=== PATIENT | female | born 1980 | race Caucasian/White ===

== ENCOUNTER 2021-01-14 20:38 | Inpatient (IN) | payer SELFPAY ==
[~2021-01-14] VITALS: Ht 170.2 cm; Wt 87.0 kg
[2021-01-14 23:34] LABS: BASOPHIL 0.3 % (0-2); EOSINOPHIL 12.3 % (0-5); HGB 12.7 g/dl (12.5-16.0); LYMPHOCYTE 27.6 % (15-48); MCH 31.1 pg (25.0-31.0); MCHC 35.3 g/dL (32.0-36.0); MCV 88.2 fL (78.0-100.0); MONOCYTE 6.5 % (0-12); MPV 10.8 fL (6.0-9.5); NRBC 0; PLT 175 K/uL (150-400); RBC 4.08 M/uL (4.20-5.40); WBC 6.5 K/uL (4.0-10.5)
[2021-01-14 23:39] LABS: INR 1.06 (0.9-1.2); PROTHROMBIN TIME 13.2 SECONDS (11.8-13.4); PTT 29.8 SECONDS (24.4-34.7)
[2021-01-14 23:45] LABS: ALBUMIN 3.1 g/dL (3.4-5.0); BILIRUBIN - TOTAL 0.3 mg/dL (0.2-1.0); BUN/CREAT RATIO (CALC) 16.5 RATIO; CREATININE 0.79 mg/dL (0.51-0.95); POTASSIUM 3.8 mmol/L (3.5-5.1); TOTAL PROTEIN 8.1 g/dL (6.4-8.2)
[2021-01-14 23:45] LABS: BILIRUBIN NEGATIVE (NEGATIVE); BLOOD NEGATIVE Ery/uL (NEGATIVE); CLARITY CLEAR (CLEAR); COLOR YELLOW (YELLOW); GLUCOSE (U) NORMAL (NORMAL); LEUKOCYTES NEGATIVE Leu/uL (NEGATIVE); NITRITE NEGATIVE (NEGATIVE); PROTEIN NEGATIVE (NEGATIVE); SPECIFIC GRAVITY 1.025 (1.001-1.030)
[2021-01-14 23:48] LABS: AMPHETAMINES NEGATIVE (NEGATIVE); BARBITURATES POSITIVE (NEGATIVE); ECSTASY (MDMA) NEGATIVE (NEGATIVE); MARIJUANA (THC) NEGATIVE (NEGATIVE); METHADONE NEGATIVE (NEGATIVE); OPIATES NEGATIVE (NEGATIVE); OXYCODONE NEGATIVE (NEGATIVE)
[2021-01-15 07:19] LABS: BUN/CREAT RATIO (CALC) 19.7 RATIO; CREATININE 0.71 mg/dL (0.51-0.95); POTASSIUM 3.8 mmol/L (3.5-5.1)
[2021-01-15] MEDS ORDERED: NEURONTIN300 MG PO (15:13)
[2021-01-15] MEDS ORDERED: WELLBUTRIN SR150 MG PO (15:13)
[2021-01-15] MEDS ORDERED: SEROQUEL 25MG T25 MG PO (15:14)
[2021-01-15] MEDS ORDERED: ROBAXIN750 MG PO (15:14)
[2021-01-15] MEDS ORDERED: ALDACTONE25 MG PO (15:15)
[2021-01-15] MEDS ORDERED: METFORMIN HCL500 MG PO (15:15)
[2021-01-15] MEDS ORDERED: LASIX40 MG PO (15:16)
[2021-01-15] MEDS ORDERED: VOLTAREN **OUT50 MG PO (15:16)
[2021-01-15] MEDS ORDERED: LACTULOSE10 G/15 ML PO (15:16)
[2021-01-15] MEDS ORDERED: CLONAZEPAM 1MG T1 MG PO (15:17)
[2021-01-15] MEDS ORDERED: HARVONI 90-4001 EACH PO (15:18)
[2021-01-16 05:39] LABS: BASOPHIL 0.4 % (0-2); EOSINOPHIL 10.5 % (0-5); HCT 32.9 % (37.0-47.0); LYMPHOCYTE 19.5 % (15-48); MCH 30.7 pg (25.0-31.0); MCHC 33.4 g/dL (32.0-36.0); MCV 91.9 fL (78.0-100.0); MONOCYTE 6.4 % (0-12); MPV 10.8 fL (6.0-9.5); NEUTROPHIL 62.8 % (41-80); NRBC 0; PLT 135 K/uL (150-400); RBC 3.58 M/uL (4.20-5.40); RDW 13.9 % (11.5-14.0); WBC 5.1 K/uL (4.0-10.5)
[2021-01-16 05:42] LABS: ALBUMIN 2.6 g/dL (3.4-5.0); BILIRUBIN - TOTAL 0.5 mg/dL (0.2-1.0); BUN/CREAT RATIO (CALC) 21.7 RATIO; CREATININE 0.46 mg/dL (0.51-0.95); GLOBULIN (CALCULATION) 4.2 g/dL; MAGNESIUM 1.2 mg/dL (1.8-2.4); PHOSPHORUS 2.3 mg/dL (2.6-4.7); POTASSIUM 3.6 mmol/L (3.5-5.1); TOTAL PROTEIN 6.8 g/dL (6.4-8.2)
--- NOTE | 2021-01-16 15:52 | NUR ---
01/16/21 Ms. Benson requested to see this socially responsible investment adviser. The assessment was limited due to patient's slurred speech. Ms. Benson reports plans to continue staying with her friend in [place]. She is interested is being set up with a PCP. A referral was made to the Patient Resource Fleet Operations Manager.
[2021-01-17 05:21] LABS: BASOPHIL 0.2 % (0-2); EOSINOPHIL 9.3 % (0-5); HCT 34.3 % (37.0-47.0); HGB 11.4 g/dl (12.5-16.0); LYMPHOCYTE 22.6 % (15-48); MCHC 33.2 g/dL (32.0-36.0); MCV 93.2 fL (78.0-100.0); MONOCYTE 8.6 % (0-12); NEUTROPHIL 59.3 % (41-80); NRBC 0; PLT 136 K/uL (150-400); RBC 3.68 M/uL (4.20-5.40); RDW 13.9 % (11.5-14.0); WBC 4.2 K/uL (4.0-10.5)
[2021-01-17 05:37] LABS: ALBUMIN 2.8 g/dL (3.4-5.0); BILIRUBIN - TOTAL 0.4 mg/dL (0.2-1.0); BUN/CREAT RATIO (CALC) 14.8 RATIO; CREATININE 0.61 mg/dL (0.51-0.95); GLOBULIN (CALCULATION) 4.5 g/dL; MAGNESIUM 1.4 mg/dL (1.8-2.4); PHOSPHORUS 2.9 mg/dL (2.6-4.7); POTASSIUM 3.7 mmol/L (3.5-5.1); TOTAL PROTEIN 7.3 g/dL (6.4-8.2)
--- NOTE | 2021-01-17 15:23 | NUR ---
PATIENT IS VERY AGGITATED AND WANTS TO BE TRANSFERRED TO ANOTHER HOSPITAL. FRIEND EMILY FAUSTIN HERE. EMILY TOLD PATIENT THAT IT WAS NOT SAFE FOR HER TO GO HOME WITH HER. DR. AYERS DISCUSSED MEDICAL AND EMOTIONAL CONDITION WITH PATIENT AND MS FAUSTIN. EXPLAINED THAT PATIENT WAS STABLE MEDICALLY BUT NEEDED REHAB AND PSYCHIATRIC SERVICES. DARREN HILL ATTEMPTED TO DISCUSS SERVICES WITH PATIENT. PATIENT NOT RECEPTIVE. CURSING AT THIS NURSE, DR. AYERS AND . SISTER AND BOYFRIEND NOTIFIED OF BEHAVIOR
[2021-01-18 06:26] LABS: BASOPHIL 0.4 % (0-2); EOSINOPHIL 8.7 % (0-5); HCT 32.5 % (37.0-47.0); HGB 10.9 g/dl (12.5-16.0); LYMPHOCYTE 24.2 % (15-48); MCH 30.9 pg (25.0-31.0); MCHC 33.5 g/dL (32.0-36.0); MCV 92.1 fL (78.0-100.0); MONOCYTE 11.2 % (0-12); MPV 11.2 fL (6.0-9.5); NEUTROPHIL 55.1 % (41-80); NRBC 0; PLT 117 K/uL (150-400); RBC 3.53 M/uL (4.20-5.40); RDW 14.1 % (11.5-14.0); WBC 2.8 K/uL (4.0-10.5)
[2021-01-18 06:33] LABS: ALBUMIN 2.6 g/dL (3.4-5.0); BILIRUBIN - TOTAL 0.5 mg/dL (0.2-1.0); BUN/CREAT RATIO (CALC) 18.9 RATIO; CREATININE 0.53 mg/dL (0.51-0.95); GLOBULIN (CALCULATION) 4.3 g/dL; POTASSIUM 3.5 mmol/L (3.5-5.1); TOTAL PROTEIN 6.9 g/dL (6.4-8.2)
--- NOTE | 2021-01-18 15:01 | NUR ---
PATIENT WALKED DOWN TO [employer]. TO BE TAKEN TO [facility] , CAB VOUCHER, HOTEL VOUCHER, FOOD AND PERSONAL SUPPLIES GIVEN TO PATIENT. BLACK BAG, ROLLING SUITCASE AND SATCHEL TAKEN WITH PATIENT. DISCHARGE INSTRUCTIONS GIVEN TO PATIENT, WAS NOT INTERESTED IN INSTRUCTIONS. INFORMATION ON SMOKING CESSATION GIVEN TO PATIENT. WAS NOT INTERESTED IN SMOKING CESSATION. INSTRUCTED ABOUT DAILY DRESSING CHANGE, SUPPLIES GIVEN TO PATIENT FOR 7 DAYS OF CHANGES. WAS NOT INTERESTED IN INSTRUCTION ON DRESSING CHANGES. SPOKE WITH SISTER REGARDING PLANS.
--- NOTE | 2021-01-18 15:55 | NUR ---
01/18/21 ON 01/17/21 Ms. Watson was displaying tearfulness, pressured speech, and would not attend to conversation with this rn social work, the RN, and Dr. Grande. OLBARBARA evaluated patient and was denied for admission. - Ms. Benson was discharged today. She reports that her friend whom she was staying with, Annabel Barr would not respond to her calls. Nursing reports her sister in [place] to have refused to assist. Ms. Benson reports that her boyfriend, Jordan Trujillo, , is in [place]. According to Ms. Benson, Mr. Trujillo will pay for transportation back to [place] when he gets paid. She denies having any money. A room was paid for by the [employer] for 2 night at [facility], [phone], arranged by Kevin Jacob. A cab voucher was provided and sack lunches were provided. Ms. Benson was provided with a list of Homeless Shelters to include Room in the [facility] (No rooms avasilable for tonight). Ms. Benson was informed that the provisions provided could not be provided again in the future. -
== END 2021-01-18 14:50 | disposition home or self-care (01) | DRG 200 ==
LOC: FER 20:38 → FTCU 01-15 04:57
PROVIDERS: Emergency Medicine; Nurse Practitioner; ADMIT Internal Medicine
PROC: 0W9930Z Drainage of Right Pleural Cavity with Drainage Device, Percutaneous Approach (ICD-10-PCS; principal; 2021-01-15)
PROC: 06HM33Z Insertion of Infusion Device into Right Femoral Vein, Percutaneous Approach (ICD-10-PCS; 2021-01-15)
DX: J95.811 Postprocedural pneumothorax (principal); F10.231 Alcohol dependence with withdrawal delirium; J95.71 Accidental puncture and laceration of a respiratory system organ or structure during a respiratory system procedure; K70.10 Alcoholic hepatitis without ascites; B19.20 Unspecified viral hepatitis C without hepatic coma; Z20.822 Contact with and (suspected) exposure to COVID-19; F31.9 Bipolar disorder, unspecified; F17.210 Nicotine dependence, cigarettes, uncomplicated; Z90.49 Acquired absence of other specified parts of digestive tract; J44.9 Chronic obstructive pulmonary disease, unspecified; E11.9 Type 2 diabetes mellitus without complications; I10 Essential (primary) hypertension; Z88.2 Allergy status to sulfonamides; D35.01 Benign neoplasm of right adrenal gland; R59.0 Localized enlarged lymph nodes; F13.90 Sedative, hypnotic, or anxiolytic use, unspecified, uncomplicated; K70.30 Alcoholic cirrhosis of liver without ascites; K29.20 Alcoholic gastritis without bleeding; F41.9 Anxiety disorder, unspecified; F10.220 Alcohol dependence with intoxication, uncomplicated; Y90.6 Blood alcohol level of 120-199 mg/100 ml
CPT/HCPCS: 36415; 71045; 80048; 80053; 80305; 81003; 82140; 82150; 82962; 83690; 83735; 84100; 85025; 85610; 85730; 94010; 96374; 96375; 96376; C9113; G0378; G0480; J1170; J2060; J2270; J2405; J2560; J3475; J7030; U0002